=== PATIENT | female | born 1940 | race Caucasian/White ===

== ENCOUNTER 2020-07-11 10:13 | Emergency (ER) | payer MEDICARE ==
[2020-07-11 10:48] LABS: #Basophils 0.1 10x3/uL (0.0-0.2); #Monocytes 0.6 10x3/uL (0.0-1.1); #Neutrophils 4.5 10x3/uL (1.5-8.4); %Basophils 0.8 % (0.0-2.0); %Eosinophils 0.5 % (0.0-6.0); %Lymphocytes 18.9 % (18.0-47.0); %Monocytes 9.3 % (0.0-10.0); %Neutrophils 69.4 % (40.0-75.0); Hemoglobin 14.2 g/dL (12.0-15.5); Mean Corpuscular Hemoglobin 30.9 pg (27.0-33.0); Mean Corpuscular Volume 91.1 fl (81.6-98.3); Mean Platelet Volume 12.3 fl (7.4-10.4); Platelet Count 167 10x3/uL (150-450); RBC Distribution Width 12.4 % (11.5-14.5); Red Blood Cell (RBC) Count 4.59 10x6/uL (3.90-5.03); White Blood Cell (WBC) Count 6.5 10x3/uL (3.5-10.5)
[2020-07-11 11:06] LABS: ALT (SGPT) 29 U/L (8-55); AST (SGOT) 36 U/L (5-34); Alkaline Phosphatase 83 U/L (40-110); Anion Gap 16 mmol/L (10-20); BUN (Urea Nitrogen) 12 mg/dL (9.8-20.1); Bilirubin, Total 0.8 mg/dL (0.2-1.2); Calc. Creatinine Clearance 0 mL/min (70-130); Calcium 9.8 mg/dL (7.8-10.44); Carbon Dioxide 27 mmol/L (23-31); Chloride 87 mmol/L (98-107); Glucose 119 mg/dL (83-110); Lipase 15 U/L (8-78); Potassium 3.7 mmol/L (3.5-5.1); Sodium 126 mmol/L (136-145)
== END 2020-07-11 13:20 | disposition home or self-care (01) ==
LOC: CSHERS 10:13
DX: R55 Syncope and collapse (principal); E87.1 Hypo-osmolality and hyponatremia; I10 Essential (primary) hypertension
CPT/HCPCS: 71045; 80053; 83690; 84484; 85025; 93005; 94760